=== PATIENT | female | born 1940 | race Caucasian/White ===

== ENCOUNTER → 2019-05-09 10:59 | Outpatient (BNVA) | payer MEDICARE, SELFPAY | PROVIDERS: PCP Nurse Practitioner Family; Visit Provider Nurse Practitioner Family | DX: E03.9 Hypothyroidism, unspecified (principal); E55.9 Vitamin D deficiency, unspecified; E78.2 Mixed hyperlipidemia; R05 Cough; I10 Essential (primary) hypertension; E78.5 Hyperlipidemia, unspecified | CPT/HCPCS: 80053; 80061; 82306; 84443; 85025 ==

== ENCOUNTER → 2019-08-07 14:37 | Outpatient (BNVA) | payer MEDICARE, SELFPAY | PROVIDERS: PCP Nurse Practitioner Family; Visit Provider Nurse Practitioner Family | DX: M79.672 Pain in left foot (principal) | CPT/HCPCS: 73630 ==

== ENCOUNTER → 2019-11-12 11:04 | Outpatient (BNVA) | payer MEDICARE, SELFPAY | PROVIDERS: PCP Nurse Practitioner Family; Visit Provider Nurse Practitioner | DX: R30.9 Painful micturition, unspecified (principal) | CPT/HCPCS: 81000; 87086 ==

== ENCOUNTER → 2019-11-17 12:17 | Outpatient (BNVA) | payer MEDICARE, SELFPAY | PROVIDERS: PCP Nurse Practitioner Family; Visit Provider Nurse Practitioner Family | DX: N30.00 Acute cystitis without hematuria (principal) | CPT/HCPCS: 81003; 87086 ==

== ENCOUNTER → 2019-11-27 12:42 | Outpatient (BNVA) | payer MEDICARE, SELFPAY | PROVIDERS: PCP Nurse Practitioner Family; Visit Provider Nurse Practitioner Family | DX: E03.9 Hypothyroidism, unspecified (principal); E55.9 Vitamin D deficiency, unspecified; E78.5 Hyperlipidemia, unspecified; I10 Essential (primary) hypertension; N30.00 Acute cystitis without hematuria | CPT/HCPCS: 80053; 80061; 81003; 82306; 84443; 85025 ==

== ENCOUNTER → 2019-11-30 14:38 | Outpatient (BNVA) | payer MEDICARE, SELFPAY | PROVIDERS: PCP Nurse Practitioner Family; Visit Provider Family Medicine | DX: N30.00 Acute cystitis without hematuria (principal) | CPT/HCPCS: 87086 ==

== ENCOUNTER → 2019-12-11 09:42 | Outpatient (BNVA) | payer MEDICARE, SELFPAY | PROVIDERS: PCP Nurse Practitioner Family; Visit Provider Family Medicine | DX: N30.00 Acute cystitis without hematuria (principal) | CPT/HCPCS: 81003 ==

== ENCOUNTER → 2020-05-31 09:48 | Outpatient (BNVA) | payer MEDICARE, SELFPAY | PROVIDERS: PCP Nurse Practitioner Family; Visit Provider Family Medicine | DX: E03.9 Hypothyroidism, unspecified (principal); E78.5 Hyperlipidemia, unspecified; I10 Essential (primary) hypertension | CPT/HCPCS: 80053; 80061; 84443; 85025 ==

== ENCOUNTER 2020-08-06 06:47 | Emergency (ER) | payer OTHER, MEDICARE, SELFPAY ==
[2020-08-06 06:48] VITALS: BP 150/73; PULSE 79; RESP 17; TEMP 36.6; O2SAT 94; BMI 28.6
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
--- NOTE | 2020-08-06 06:53 | ECG_ITS ---
[facility] Test Date: 2020-08-06 Pat Name: Dede Gama Department: Room: Gender: Female Classification Clerk: : 1940 Requested By: Ambrocio Garza Order Number: [id number] Chen MD: Clayton Fuller M.D. Measurements Intervals [place] Rate: 81 P: 76 NC: 185 QRS: 66 QRSD: 90 T: 50 QT: 382 QTc: 445 Interpretive Statements SINUS RHYTHM Compared to ECG 03/02/2015 22:25:43 No significant changes Electronically Signed On 08-06-2020 17:07:58 CDT by Clayton Fuller M.D. [email or web address] [id number]
[2020-08-06 06:56] VITALS: PULSE 89; RESP 18; O2SAT 95
[2020-08-06 07:04] LABS: Basophils # 0.1 10^3/uL (0.0-0.1); Basophils % 0.5 %; Eosinophils # 0.2 10^3/uL (0.0-0.8); Eosinophils % 1.9 %; Hemoglobin 13.4 g/dL (11.5-15.3); Lymphocytes # 1.8 10^3/uL (0.8-4.8); Lymphocytes % 18.1 %; Mean Corpuscular HGB Conc 33.5 g/dL (30.0-36.0); Mean Corpuscular Hemoglobin 31.5 pg (28.0-34.0); Mean Corpuscular Volume 94.1 fL (81-99); Mean Platelet Volume 9.6 fL (7.4-10.4); Monocytes # 0.7 10^3/uL (0.2-0.9); Monocytes % 6.7 %; Neutrophils # 6.87 10^3/uL (1.8-7.7); Neutrophils % 70.3 %; Nucleated Red Blood Cells % 0 %; Platelet Count 273 10^3/cmm (130-400); Red Blood Count 4.25 10^6/uL (4.1-5.3); Red Cell Distribution Width 12.5 % (12.1-15.1); White Blood Count 9.8 10^3/uL (4.0-10.0)
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
[2020-08-06 07:17] LABS: INR 0.92 (0.8-1.2)
[2020-08-06 07:18] LABS: Partial Thromboplastin Time 34.4 SECONDS (23.9-36.7)
[2020-08-06 07:19] LABS: Lactic Sepsis W/Reflex 1.5 mmol/L (0.5-2.2)
[2020-08-06 07:28] LABS: Alanine Aminotransferase 58 U/L (0-33); Albumin Level 4.1 g/dL (3.5-5.2); Alkaline Phosphatase 88 IU/L (35-105); Anion Gap 17.1 (5-19); Aspartate Amino Transferase 88 U/L (0-32); Blood Urea Nitrogen 26 mg/dL (8-23); Calcium 9.2 mg/dL (8.5-10.5); Carbon Dioxide 25 mmol/L (22-29); Chloride 103 mmol/L (98-107); Globulin 2.8 g/dL (1.3-4.6); Glucose 128 mg/dL (65-115); Osmolality Calculated 298 mOsm/kg (285-295); Potassium 4.1 mmol/L (3.5-5.1); Sodium 141 mmol/L (136-145); Total Protein 6.9 g/dL (6.6-8.7)
[2020-08-06] MEDS: tetanus-dipt-pertussis 0.5 mL SDV IM (07:39)
[2020-08-06 07:43] VITALS: RESP 16
[2020-08-06] MEDS: morphine 4 mg/mL SDV 1 mL IVP ×2 (07:43→08:05)
[2020-08-06] MEDS: iodixanol 320 mg/mL 100mL Btl IV (08:04)
[2020-08-06 08:05] VITALS: RESP 16
[2020-08-06 09:00] LABS: Bilirubin Urine Neg (Negative); Blood Urine 3+ (Negative); Glucose Urine UA Norm (Normal); Ketones Urine Negative (Negative); Nitrate Urine Negative (Negative); Protein Urine 1+ (Negative); Urine Appearance SL Hazy (CLEAR); Urine Color Yellow (Yellow); Urobilinogen Urine Norm (Negative); pH Urine 5 (5-7)
[2020-08-06 09:01] LABS: Add Urine Microscopic? YES; Leukocyte Esterase Urine Trace (Negative)
[2020-08-06 09:02] LABS: Add Urine Culture? No; Bacteria Urine TRACE /hpf; Hyaline Casts Urine 0-4 /lpf; Mucus Urine TRACE /hpf; Squamous Epithelial Cell Urine 0-4 /hpf (0-5); WBC Urine 0-4 /hpf (0-5)
[2020-08-06 09:13] VITALS: BP 179/80; PULSE 66; RESP 18; O2SAT 95
== END 2020-08-06 09:31 | disposition home or self-care (01) ==
PROVIDERS: Emergency Provider Family Medicine; PCP Nurse Practitioner Family
DX: S30.1XXA Contusion of abdominal wall, initial encounter (principal); Z79.82 Long term (current) use of aspirin; I10 Essential (primary) hypertension; E78.5 Hyperlipidemia, unspecified; S01.81XA Laceration without foreign body of other part of head, initial encounter; V89.2XXA Person injured in unspecified motor-vehicle accident, traffic, initial encounter; Z23 Encounter for immunization
CPT/HCPCS: 70450; 71260; 72125; 74177; 80053; 81001; 83605; 85025; 85610; 85730; 86850; 86900; 90471; 90715; 93005; 96374; 99284; J2270; Q9967

== ENCOUNTER → 2021-07-04 12:10 | Outpatient (BNVA) | payer MEDICARE, SELFPAY | PROVIDERS: PCP Nurse Practitioner Family; Visit Provider Nurse Practitioner Family | DX: E78.5 Hyperlipidemia, unspecified (principal); I10 Essential (primary) hypertension; E55.9 Vitamin D deficiency, unspecified; E03.9 Hypothyroidism, unspecified | CPT/HCPCS: 80053; 80061; 82306; 84443 ==

== ENCOUNTER 2021-08-04 11:13 | Emergency (ER) | payer MEDICARE, SELFPAY ==
[2021-08-04 12:00] VITALS: BP 120/63; PULSE 87; RESP 18; O2SAT 98; BMI 25.4
--- NOTE | 2021-08-04 12:38 | CT_ITS ---
WS: [id number] CT LUMBAR SPINE TECHNIQUE: Noncontrast CT of the lumbar spine with coronal and sagittal reformatted images. CLINICAL INFORMATION: fall with lower back pain COMPARISON: CT August 06, 2020. DLP: 2287.[address] scans at [facility] use at least one of these dose optimization techniques: automated e xposure control; mA and/or kV adjustment per patient size (includes targeted exams where dose is matc hed to clinical indication); or iterative reconstruction. FINDINGS: Mild lumbar curve convex LEFT. Mild compression superior endplate L5 is new compared to August 06, 2020 and has an acute appearance. Minimal loss vertebral body height. Minimal retropulsion posterior supe rior cortex. Mild central canal stenosis at this level. Mild paravertebral soft tissue edema. Mild co mpression of the LEFT superior endplate L1 also appears new from previous likely acute to subacute. L1-L2: Mild compression of the LEFT superior endplate L1. Minimal loss vertebral body height. No retr opulsion. L2-L3: Mild disc bulging with osteophytic ridging. Moderate facet arthropathy. Moderate central canal stenosis. Narrowing of the subarticular recess bilaterally. Mild RIGHT foraminal narrowing. L3-L4: Slight disc bulging with osteophytic ridging. Moderate facet arthropathy. Spinal canal and for amen are patent. L4-L5: Mild disc bulging with slight impingement on the traversing L5 nerve roots bilaterally. Advanc ed facet arthropathy ligamentum flavum flavum hypertrophy. Mild central canal stenosis. Foramen are p atent. L5-S1: Minimal annular bulging. Osteophytic ridging with mild RIGHT foraminal narrowing. LEFT foramen is patent. Moderate facet arthropathy. Sigmoid diverticulosis. CT/CT lumbar spine wo con* [id number] IMPRESSION: 1. Mild lumbar curve convex LEFT. 2. Mild compression superior endplate L5 with loss of approximately 20% verteb ral body height. This has an acute appearance with visualized fracture clefts. Minimal retropulsion posterior superior cortex with mild central canal stenosi s. 3. Additional acute to subacute appearing compression of the LEFT superior end plate L1 with minimal loss vertebral body height. 4. Chronic spondylitic changes lumbar spine described above. 5. Chronic moderate central canal stenosis L2-L3 due to disc bulging with face t arthropathy and ligamentum flavum hypertrophy..
--- NOTE | 2021-08-04 12:46 | ED_ITS ---
Documented by User: JAIR Harrison 08/04/21 16:26 HPI - Back Pain/Injury General: Chief Complaint: Back Pain/Injury Stated Complaint: fall/back pain Time Seen by Provider: 08/04/21 12:11 History of Present Illness: Patient is an 80-year-old female comes to the ED with back pain and difficulty urinating. Approximately a little over 10 days ago patient was in her house and tripped over her couch couch causing her to fall backwards. Her lower back hit the ground. Denies any head trauma or loss of consciousness. Patient was able to get up after fall on her own. Patient says she has been having lower back pain since fall. She states that pain does radiate down to her right leg. She rates the pain currently a 8 out of 10. She also reports some pelvic pain since the fall as well. The last 24 hours patient says she has had some trouble urinating. She takes a diuretic daily and says that that usually helps her urinate. Endorses a little bit of pain when urinating. Associated symptoms: Reports dysuria; Deny abdominal pain, chills, fatigue, fever(s), hematuria, nausea or vomiting Review of Systems Const: Denies: fever(s), chills or fatigue Eyes: Denies: change in vision or eye discomfort ENMT: Denies: throat pain, odynophagia, nasal discharge or nasal congestion Card: Denies: chest pain, palpitations, edema, swelling of feet/ankles, dyspnea on exertion or orthopnea Resp: Denies: dyspnea, productive cough or non-productive cough GI: Denies: abdominal pain, nausea, vomiting, diarrhea, constipation or hematochezia : Reports: difficulty voiding, dysuria and pelvic pain (Pelvic pain since fall); Denies: flank pain or hematuria Musc: Reports: back pain; Denies: neck pain or extremity swelling Skin/Breast: Denies: rash or new lesions Neuro: Denies: headache(s), numbness in extremities or weakness in extremities PFS ED PFSH: Medical History Acquired hypothyroidism Chronic constipation Essential (primary) hypertension Hyperlipidemia, unspecified Vitamin D deficiency Surgical History Hx of cholecystectomy Hx of colonoscopy (~2010) Family History Father Stroke Mother Stroke Denies family history of Diabetes Social History Smoking and tobacco status: never smoked Second hand smoke exposure: No Alcohol intake: never Caregiver/support person: Yes Lives independently: No (daughter) Household members: children Marital status: / Current occupational status: retired History of recent travel: No Current gender identity: Female Physical Exam Const: COMMON NORMALS: no acute distress, patient oriented x3 and alert GENERAL APPEARANCE: cooperative HENMT: COMMON NORMALS: normocephalic HEAD & SCALP: normocephalic MOUTH: Normal oral and palatal mucosa present THROAT: posterior oropharynx normal and uvula midline Neck/C-Spine: COMMON NORMALS: supple GENERAL: Yes normal visual inspection Resp: COMMON NORMALS: normal respiratory effort, No retractions, No use of accessory muscles and clear to auscultation bilaterally AUSCULTATION: clear to auscultation bilaterally Cardio: COMMON NORMALS: regular rate, regular rhythm, S1 normal heart sound present, S2 normal heart sound present, No gallops present (Cardio), No clicks present (Cardio), No murmurs present (Cardio) and Peripheral pulses 2+ throughout RATE: regular rate RHYTHM: regular rhythm HEART SOUNDS: S1 normal heart sound present and S2 normal heart sound present PERIPHERAL PULSES: Peripheral pulses 2+ throughout GI: COMMON NORMALS: Normal to inspection, nondistended, normoactive bowel sounds present, Soft to palpation, non-tender and no masses PALPATION: Yes Soft to palpation : COMMON NORMALS: Yes no CVA tenderness BLADDER/KIDNEY EXAM: Yes no CVA tenderness Back/Pelvis: COMMON NORMALS: no CVA tenderness LUMBAR SPINE/LOWER BACK: Yes lumbar spinal tenderness Lumbar spinal tenderness location: L3, L4 and L5 and Yes paraspinal muscle tenderness Lumbar paraspinal muscle tenderness: bilateral Extremity: COMMON NORMALS: normal to inspection Neuro: COMMON NORMALS: patient oriented x3 and moves all extremities SENSORIUM/ORIENTATION: Yes alert Skin: GENERAL SKIN EXAM: dry skin Course Reevaluation(s): Reevaluation #1: Patient was able to urinate here in the ED and UA was performed and showed UTI. Bladder scan was not performed on patient to see if she is retaining any urine. Bladder scan showed just above 80 mL of urine in bladder, also appears that she is able to void normally and is not having any urinary retention. Time: 14:20 Vital Signs: Vital signs: Vital Signs Pulse Rate 87 08/04/21 12:00 Respiratory Rate 18 08/04/21 12:00 Blood Pressure 120/63 08/04/21 12:00 Pulse Oximetry 98 08/04/21 12:00 MDM - Back Pain/Injury Medical Decision Making Patient is an 80-year-old female comes to the ED with back pain and difficulty urinating. Approximately a little over 10 days ago patient was in her house and tripped over her couch couch causing her to fall backwards. Her lower back hit the ground. Denies any head trauma or loss of consciousness. Patient was able to get up after fall on her own. Patient says she has been having lower back pain since fall. Patient also complaining of some UTI symptoms. Vital stable. Patient appears nontoxic in no acute distress. She does have some palpable tenderness of the lumbar spine and lumbar paraspinal muscle tenderness. UA shows signs of UTI. The rest of CBC and CMP were unremarkable. X-ray of the pelvis shows no acute fractures or findings. Lumbar CT scan showed a compression fracture of the superior endplate of the L5 and a compression fracture of left superior endplate of L1. Patient was put in a TLSO brace and I placed an order with case management for patient to be referred to Dr. Baumann for follow-up of lumbar compression fractures. She was diagnosed with a UTI and lumbar compression fractures and discharged home with a prescription for hydrocodone for pain and cefdinir for the UTI. Return to ED precautions given. Patient understood agree with plan. Labs I reviewed the patient's lab results. : 08/04/21 14:56 08/04/21 14:56 Radiology Impressions Lumbar Spine CT 08/04/21 12:38 IMPRESSION: 1. Mild lumbar curve convex LEFT. 2. Mild compression superior endplate L5 with loss of approximately 20% vertebral body height. This has an acute appearance with visualized fracture clefts. Minimal retropulsion posterior superior cortex with mild central canal stenosis. 3. Additional acute to subacute appearing compression of the LEFT superior endplate L1 with minimal loss vertebral body height. 4. Chronic spondylitic changes lumbar spine described above. 5. Chronic moderate central canal stenosis L2-L3 due to disc bulging with facet arthropathy and ligamentum flavum hypertrophy.. Hip/Pelvis X-Ray 08/04/21 12:49 IMPRESSION: No acute findings. Laboratory Results WBC 6.6 10^3/uL (4.0-10.0) 08/04/21 14:56 Corrected WBC Cancelled 08/04/21 14:02 RBC 4.21 10^6/uL (4.1-5.3) 08/04/21 14:56 Hgb 13.1 g/dL (11.5-15.3) 08/04/21 14:56 Hct 38.9 % (37.0-47.0) 08/04/21 14:56 MCV 92.4 fl (81-99) 08/04/21 14:56 MCH 31.1 pg (28.0-34.0) 08/04/21 14:56 MCHC 33.7 g/dL (30.0-36.0) 08/04/21 14:56 RDW 12.0 % (12.1-15.1) L 08/04/21 14:56 Plt Count 280 10^3/cmm (130-400) 08/04/21 14:56 MPV 9.2 fL (7.4-10.4) 08/04/21 14:56 Gran % Cancelled 08/04/21 14:02 Neut % (Auto) 72.6 % 08/04/21 14:56 Lymph % (Auto) 16.7 % 08/04/21 14:56 Hill % (Auto) 8.1 % 08/04/21 14:56 Eos % (Auto) 1.7 % 08/04/21 14:56 Baso % (Auto) 0.6 % 08/04/21 14:56 Neut # (Auto) 4.78 10^3/uL (1.8-7.7) 08/04/21 14:56 Lymph # (Auto) 1.1 10^3/uL (0.8-4.8) 08/04/21 14:56 Hill # (Auto) 0.5 10^3/uL (0.2-0.9) 08/04/21 14:56 Eos # (Auto) 0.1 10^3/uL (0.0-0.8) 08/04/21 14:56 Baso # (Auto) 0.0 10^3/uL (0.0-0.1) 08/04/21 14:56 Absolute Gran (auto) Cancelled 08/04/21 14:02 Nucleated RBC % (auto) 0 % 08/04/21 14:56 Nucleated RBCs # 0.0 /100WBC 08/04/21 14:56 Sodium 140 mmol/L (136-145) 08/04/21 14:56 Potassium 4.4 mmol/L (3.5-5.1) 08/04/21 14:56 Chloride 104 mmol/L (98-107) 08/04/21 14:56 Carbon Dioxide 27 mmol/L (22-29) 08/04/21 14:56 Anion Gap 13.4 (5-19) 08/04/21 14:56 BUN 22 mg/dL (8-23) 08/04/21 14:56 Creatinine 0.7 mg/dL (0.5-0.9) 08/04/21 14:56 GFR Calculation Not Reportable 08/04/21 14:56 Glucose 91 mg/dL (65-115) 08/04/21 14:56 Calculated Osmolality 293 mOsm/kg (285-295) 08/04/21 14:56 Calcium 9.5 mg/dL (8.5-10.5) 08/04/21 14:56 Total Bilirubin 0.6 mg/dL (0.15-1.2) 08/04/21 14:56 AST 20 U/L (0-32) 08/04/21 14:56 ALT 14 U/L (0-33) 08/04/21 14:56 Alkaline Phosphatase 86 IU/L (35-105) 08/04/21 14:56 Total Protein 7.3 g/dL (6.6-8.7) 08/04/21 14:56 Albumin 3.8 g/dL (3.5-5.2) 08/04/21 14:56 Globulin 3.5 g/dL (1.3-4.6) 08/04/21 14:56 Urine Color Yellow (Yellow) 08/04/21 13:04 Urine Appearance Clear (CLEAR) 08/04/21 13:04 Urine pH 5 (5-7) 08/04/21 13:04 Ur Specific [place] 1.020 (1.005-1.030) 08/04/21 13:04 Urine Protein Neg (Negative) 08/04/21 13:04 Urine Glucose (UA) Norm (Normal) 08/04/21 13:04 Urine Ketones Negative (Negative) 08/04/21 13:04 Urine Blood Neg (Negative) 08/04/21 13:04 Urine Nitrate Positive (Negative) H 08/04/21 13:04 Urine Bilirubin Neg (Negative) 08/04/21 13:04 Urine Urobilinogen Norm mg/dL (Negative) 08/04/21 13:04 Ur Leukocyte Esterase 1+ (Negative) H 08/04/21 13:04 Urine RBC 0-4 /hpf (0-2) H 08/04/21 13:04 Urine WBC 5-10 /hpf (0-5) H 08/04/21 13:04 Ur Squamous Epith Cells 0-4 /hpf (0-5) H 08/04/21 13:04 Amorphous Sediment Not Reportable 08/04/21 13:04 Urine Bacteria 4+ /hpf (NONE) H 08/04/21 13:04 Discharge Plan Discharge Patient Disposition: Home Clinical Impression: Compression fracture of thoracolumbar vertebra Qualifiers: Encounter type: initial encounter Fracture type: closed Qualified Code(s): S22.080A - Wedge compression fracture of T11-T12 vertebra, initial encounter for closed fracture UTI (urinary tract infection) Qualifiers: Urinary tract infection type: acute cystitis Hematuria presence: with hematuria Qualified Code(s): N30.01 - Acute cystitis with hematuria Condition: Stable Prescriptions: New methocarbamol 750 mg tablet 750 mg PO Q8H PRN (Reason: muscle spasms and pain) Qty: 15 0RF cefdinir 300 mg capsule 300 mg PO BID 10 Days Qty: 20 0RF prednisone 20 mg tablet 20 mg PO BID 5 Days Qty: 10 0RF No Action omega-3 fatty acids 1,000 mg capsule 2,000 mg PO QDAY 0RF calcium carbonate 600 mg calcium (1,500 mg) tablet 1,200 mg PO BID 0RF aspirin [Adult Aspirin Regimen] 81 mg tablet,delayed release (DR/EC) 81 mg PO DAILY 0RF multivitamin Tablet 1 tab PO DAILY 0RF cholecalciferol (vitamin D3) 25 mcg (1,000 unit) capsule 1,000 unit PO QDAY 90 Days Qty: 90 1RF diclofenac sodium 75 mg tablet,delayed release (DR/EC) 75 mg PO Q12H 90 Days Qty: 180 0RF levothyroxine 88 mcg tablet 88 mcg PO DAILY 90 Days Qty: 90 1RF lisinopril-hydrochlorothiazide 10-12.5 mg tablet 1 tab PO DAILY 90 Days Qty: 90 1RF rosuvastatin 20 mg tablet 10 mg PO QDAY Qty: 30 5RF tizanidine 2 mg tablet 2 mg PO TID PRN (Reason: muscle spasticity) Qty: 90 3RF diclofenac sodium [Voltaren Arthritis Pain] 1 % gel 4 g topical QID Qty: 100 6RF sertraline [Zoloft] 25 mg tablet 25 mg PO DAILY 30 Days Qty: 30 0RF levocetirizine [Xyzal] 5 mg tablet 5 mg PO DAILY 90 Days Qty: 90 1RF Discharge Orders: Discharge ED (Routine); Ordered 08/04/21 Ordered By: Vishnu Michaels Referrals: Priscila Scott FNP [Primary Care Provider] - Discharge Diet: Regular Discharge Activity: Limit activity as instructed Patient Instructions: Fractures - Compression, Urinary Tract Infection in Women (DC), Opioid Safety Activity Restrictions/Additional Instructions: Follow-up with medical provider as directed. Case management regarding in the next several days set up an appointment with the orthospine specialist Dr. Baumann. Also follow-up with your primary care doctor within the next week for reevaluation as well. Wear TLSO brace to help with symptoms and limit any activity or lifting to less than 5 pounds. Take medications as prescribed. Return to the ER or your medical provider if condition worsens. Please read and understand discharge instructions. Thank you for choosing [facility] for your healthcare needs today. Please realize this is an emergency room and that we are providing you with a medical screening exam and this may not be complete and all inclusive of all the testing and or work up that you may need to determine your ailment or severity of your illness. It is very important that you follow up as instructed or that you return to the Emergency Department should you have concerns or if your condition changes or worsens in any way. Coding Level of Care Code ED Screener Perfumer for Chg Fwd Exam Comprehensive Documented by User: Ambrocio Felix DO 08/06/21 21:36 HPI - Back Pain/Injury General: Chief Complaint: Back Pain/Injury Stated Complaint: fall/back pain Time Seen by Provider: 08/04/21 12:11 PFSH ED PFSH: Medical History Acquired hypothyroidism Chronic constipation Essential (primary) hypertension Hyperlipidemia, unspecified Vitamin D deficiency Surgical History Hx of cholecystectomy Hx of colonoscopy (~2010) Family History Father Stroke Mother Stroke Denies family history of Diabetes Social History Smoking and tobacco status: never smoked Second hand smoke exposure: No Alcohol intake: never Caregiver/support person: Yes Lives independently: No (daughter) Household members: children Marital status: / Current occupational status: retired History of recent travel: No Current gender identity: Female Course Vital Signs: Vital signs: Vital Signs Pulse Rate 87 08/04/21 12:00 Respiratory Rate 18 08/04/21 12:00 Blood Pressure 120/63 08/04/21 12:00 Pulse Oximetry 98 08/04/21 12:00 MDM - Back Pain/Injury Medical Decision Making Patient is an 80-year-old female comes to the ED with back pain and difficulty urinating. Approximately a little over 10 days ago patient was in her house and tripped over her couch couch causing her to fall backwards. Her lower back hit the ground. Denies any head trauma or loss of consciousness. Patient was able to get up after fall on her own. Patient says she has been having lower back pain since fall. Patient also complaining of some UTI symptoms. Vital stable. Patient appears nontoxic in no acute distress. She does have some palpable tenderness of the lumbar spine and lumbar paraspinal muscle tenderness. UA shows signs of UTI. The rest of CBC and CMP were unremarkable. X-ray of the pelvis shows no acute fractures or findings. Lumbar CT scan showed a compression fracture of the superior endplate of the L5 and a compression fracture of left superior endplate of L1. Patient was put in a TLSO brace and I placed an order with case management for patient to be referred to Dr. Baumann for follow-up of lumbar compression fractures. She was diagnosed with a UTI and lumbar compression fractures and discharged home with a prescription for hydrocodone for pain and cefdinir for the UTI. Return to ED precautions given. Patient understood agree with plan. Chart reviewed and patient discussed with midlevel. Agree with assessment and plan. Labs : 08/04/21 14:56 08/04/21 14:56 Radiology Impressions Lumbar Spine CT 08/04/21 12:38 IMPRESSION: 1. Mild lumbar curve convex LEFT. 2. Mild compression superior endplate L5 with loss of approximately 20% vertebral body height. This has an acute appearance with visualized fracture clefts. Minimal retropulsion posterior superior cortex with mild central canal stenosis. 3. Additional acute to subacute appearing compression of the LEFT superior endplate L1 with minimal loss vertebral body height. 4. Chronic spondylitic changes lumbar spine described above. 5. Chronic moderate central canal stenosis L2-L3 due to disc bulging with facet arthropathy and ligamentum flavum hypertrophy.. Hip/Pelvis X-Ray 08/04/21 12:49 IMPRESSION: No acute findings. Laboratory Results WBC 6.6 10^3/uL (4.0-10.0) 08/04/21 14:56 Corrected WBC Cancelled 08/04/21 14:02 RBC 4.21 10^6/uL (4.1-5.3) 08/04/21 14:56 Hgb 13.1 g/dL (11.5-15.3) 08/04/21 14:56 Hct 38.9 % (37.0-47.0) 08/04/21 14:56 MCV 92.4 fl (81-99) 08/04/21 14:56 MCH 31.1 pg (28.0-34.0) 08/04/21 14:56 MCHC 33.7 g/dL (30.0-36.0) 08/04/21 14:56 RDW 12.0 % (12.1-15.1) L 08/04/21 14:56 Plt Count 280 10^3/cmm (130-400) 08/04/21 14:56 MPV 9.2 fL (7.4-10.4) 08/04/21 14:56 Gran % Cancelled 08/04/21 14:02 Neut % (Auto) 72.6 % 08/04/21 14:56 Lymph % (Auto) 16.7 % 08/04/21 14:56 Hill % (Auto) 8.1 % 08/04/21 14:56 Eos % (Auto) 1.7 % 08/04/21 14:56 Baso % (Auto) 0.6 % 08/04/21 14:56 Neut # (Auto) 4.78 10^3/uL (1.8-7.7) 08/04/21 14:56 Lymph # (Auto) 1.1 10^3/uL (0.8-4.8) 08/04/21 14:56 Hill # (Auto) 0.5 10^3/uL (0.2-0.9) 08/04/21 14:56 Eos # (Auto) 0.1 10^3/uL (0.0-0.8) 08/04/21 14:56 Baso # (Auto) 0.0 10^3/uL (0.0-0.1) 08/04/21 14:56 Absolute Gran (auto) Cancelled 08/04/21 14:02 Nucleated RBC % (auto) 0 % 08/04/21 14:56 Nucleated RBCs # 0.0 /100WBC 08/04/21 14:56 Sodium 140 mmol/L (136-145) 08/04/21 14:56 Potassium 4.4 mmol/L (3.5-5.1) 08/04/21 14:56 Chloride 104 mmol/L (98-107) 08/04/21 14:56 Carbon Dioxide 27 mmol/L (22-29) 08/04/21 14:56 Anion Gap 13.4 (5-19) 08/04/21 14:56 BUN 22 mg/dL (8-23) 08/04/21 14:56 Creatinine 0.7 mg/dL (0.5-0.9) 08/04/21 14:56 GFR Calculation Not Reportable 08/04/21 14:56 Glucose 91 mg/dL (65-115) 08/04/21 14:56 Calculated Osmolality 293 mOsm/kg (285-295) 08/04/21 14:56 Calcium 9.5 mg/dL (8.5-10.5) 08/04/21 14:56 Total Bilirubin 0.6 mg/dL (0.15-1.2) 08/04/21 14:56 AST 20 U/L (0-32) 08/04/21 14:56 ALT 14 U/L (0-33) 08/04/21 14:56 Alkaline Phosphatase 86 IU/L (35-105) 08/04/21 14:56 Total Protein 7.3 g/dL (6.6-8.7) 08/04/21 14:56 Albumin 3.8 g/dL (3.5-5.2) 08/04/21 14:56 Globulin 3.5 g/dL (1.3-4.6) 08/04/21 14:56 Urine Color Yellow (Yellow) 08/04/21 13:04 Urine Appearance Clear (CLEAR) 08/04/21 13:04 Urine pH 5 (5-7) 08/04/21 13:04 Ur Specific [place] 1.020 (1.005-1.030) 08/04/21 13:04 Urine Protein Neg (Negative) 08/04/21 13:04 Urine Glucose (UA) Norm (Normal) 08/04/21 13:04 Urine Ketones Negative (Negative) 08/04/21 13:04 Urine Blood Neg (Negative) 08/04/21 13:04 Urine Nitrate Positive (Negative) H 08/04/21 13:04 Urine Bilirubin Neg (Negative) 08/04/21 13:04 Urine Urobilinogen Norm mg/dL (Negative) 08/04/21 13:04 Ur Leukocyte Esterase 1+ (Negative) H 08/04/21 13:04 Urine RBC 0-4 /hpf (0-2) H 08/04/21 13:04 Urine WBC 5-10 /hpf (0-5) H 08/04/21 13:04 Ur Squamous Epith Cells 0-4 /hpf (0-5) H 08/04/21 13:04 Amorphous Sediment Not Reportable 08/04/21 13:04 Urine Bacteria 4+ /hpf (NONE) H 08/04/21 13:04 Discharge Plan Discharge Patient Disposition: Home Clinical Impression: Compression fracture of thoracolumbar vertebra Qualifiers: Encounter type: initial encounter Fracture type: closed Qualified Code(s): S22.080A - Wedge compression fracture of T11-T12 vertebra, initial encounter for closed fracture UTI (urinary tract infection) Qualifiers: Urinary tract infection type: acute cystitis Hematuria presence: with hematuria Qualified Code(s): N30.01 - Acute cystitis with hematuria Condition: Stable Prescriptions: New methocarbamol 750 mg tablet 750 mg PO Q8H PRN (Reason: muscle spasms and pain) Qty: 15 0RF cefdinir 300 mg capsule 300 mg PO BID 10 Days Qty: 20 0RF prednisone 20 mg tablet 20 mg PO BID 5 Days Qty: 10 0RF No Action omega-3 fatty acids 1,000 mg capsule 2,000 mg PO QDAY 0RF calcium carbonate 600 mg calcium (1,500 mg) tablet 1,200 mg PO BID 0RF aspirin [Adult Aspirin Regimen] 81 mg tablet,delayed release (DR/EC) 81 mg PO DAILY 0RF multivitamin Tablet 1 tab PO DAILY 0RF cholecalciferol (vitamin D3) 25 mcg (1,000 unit) capsule 1,000 unit PO QDAY 90 Days Qty: 90 1RF diclofenac sodium 75 mg tablet,delayed release (DR/EC) 75 mg PO Q12H 90 Days Qty: 180 0RF levothyroxine 88 mcg tablet 88 mcg PO DAILY 90 Days Qty: 90 1RF lisinopril-hydrochlorothiazide 10-12.5 mg tablet 1 tab PO DAILY 90 Days Qty: 90 1RF rosuvastatin 20 mg tablet 10 mg PO QDAY Qty: 30 5RF tizanidine 2 mg tablet 2 mg PO TID PRN (Reason: muscle spasticity) Qty: 90 3RF diclofenac sodium [Voltaren Arthritis Pain] 1 % gel 4 g topical QID Qty: 100 6RF sertraline [Zoloft] 25 mg tablet 25 mg PO DAILY 30 Days Qty: 30 0RF levocetirizine [Xyzal] 5 mg tablet 5 mg PO DAILY 90 Days Qty: 90 1RF Discharge Orders: Discharge ED (Routine); Ordered 08/04/21 Ordered By: Vishnu Michaels Referrals: Priscila Scott FNP [Primary Care Provider] - Discharge Diet: Regular Discharge Activity: Limit activity as instructed Patient Instructions: Fractures - Compression, Urinary Tract Infection in Women (DC), Opioid Safety Activity Restrictions/Additional Instructions: Follow-up with medical provider as directed. Case management regarding in the next several days set up an appointment with the orthospine specialist Dr. Baumann. Also follow-up with your primary care doctor within the next week for reevaluation as well. Wear TLSO brace to help with symptoms and limit any activity or lifting to less than 5 pounds. Take medications as prescribed. Return to the ER or your medical provider if condition worsens. Please read and understand discharge instructions. Thank you for choosing [facility] for your healthcare needs today. Please realize this is an emergency room and that we are providing you with a medical screening exam and this may not be complete and all inclusive of all the testing and or work up that you may need to determine your ailment or severity of your illness. It is very important that you follow up as instructed or that you return to the Emergency Department should you have concerns or if your condition changes or worsens in any way. Coding Level of Care Code ED Screener Perfumer for Dayanna Michaud Exam Comprehensive
--- NOTE | 2021-08-04 12:49 | XRR_ITS ---
PROCEDURE INFORMATION: Exam: XR Bilateral Hips Exam date and time: 08/04/2021 1:18 PM Age: 80 years old Clinical indication: Pain and injury or trauma; Fall; Blunt trauma (contusions or hematomas); Bilateral; Hip pain; Additional info: Fall with low back and pelvic pain TECHNIQUE: Imaging protocol: XR bilateral hips. Views: 2 views of hips with pelvis when performed. COMPARISON: CT chest abd pel w con* 08/06/2020 7:05 AM FINDINGS: Bones/joints: Unremarkable. No acute fracture. Soft tissues: Unremarkable. XR/XR hip BI 3-4V wo/w pel [id number] IMPRESSION: No acute findings.
[2021-08-04 13:35] LABS: Urine Appearance Clear (CLEAR); Urine Color Yellow (Yellow); pH Urine 5 (5-7)
[2021-08-04 13:36] LABS: Add Urine Culture? Yes; Add Urine Microscopic? YES; Bacteria Urine 4+ /hpf; Bilirubin Urine Neg (Negative); Blood Urine Neg (Negative); Glucose Urine UA Norm (Normal); Ketones Urine Negative (Negative); Leukocyte Esterase Urine 1+ (Negative); Nitrate Urine Positive (Negative); Protein Urine Neg (Negative); RBC Urine 0-4 /hpf (0-2); Squamous Epithelial Cell Urine 0-4 /hpf (0-5); Urobilinogen Urine Norm (Negative)
[2021-08-04 15:02] LABS: Basophils % 0.6 %; Eosinophils # 0.1 10^3/uL (0.0-0.8); Eosinophils % 1.7 %; Hematocrit 38.9 % (37.0-47.0); Hemoglobin 13.1 g/dL (11.5-15.3); Lymphocytes # 1.1 10^3/uL (0.8-4.8); Lymphocytes % 16.7 %; Mean Corpuscular HGB Conc 33.7 g/dL (30.0-36.0); Mean Corpuscular Hemoglobin 31.1 pg (28.0-34.0); Mean Corpuscular Volume 92.4 fl (81-99); Mean Platelet Volume 9.2 fL (7.4-10.4); Monocytes # 0.5 10^3/uL (0.2-0.9); Monocytes % 8.1 %; Neutrophils # 4.78 10^3/uL (1.8-7.7); Neutrophils % 72.6 %; Nucleated Red Blood Cells % 0 %; Platelet Count 280 10^3/cmm (130-400); Red Blood Count 4.21 10^6/uL (4.1-5.3); White Blood Count 6.6 10^3/uL (4.0-10.0)
[2021-08-04 15:22] LABS: Alanine Aminotransferase 14 U/L (0-33); Albumin Level 3.8 g/dL (3.5-5.2); Alkaline Phosphatase 86 IU/L (35-105); Anion Gap 13.4 (5-19); Aspartate Amino Transferase 20 U/L (0-32); Blood Urea Nitrogen 22 mg/dL (8-23); Calcium 9.5 mg/dL (8.5-10.5); Carbon Dioxide 27 mmol/L (22-29); Chloride 104 mmol/L (98-107); Globulin 3.5 g/dL (1.3-4.6); Glucose 91 mg/dL (65-115); Osmolality Calculated 293 mOsm/kg (285-295); Potassium 4.4 mmol/L (3.5-5.1); Sodium 140 mmol/L (136-145); Total Bilirubin 0.6 mg/dL (0.15-1.2); Total Protein 7.3 g/dL (6.6-8.7)
--- NOTE | 2021-08-05 13:15 | DCPLANNER ---
Addendum entered by Emily Foreman 08/06/21 10:36: analytic manager was notified by ortho stating that the clinic tried to contact patient to schedule an appointment clinic has been unable to reach patient to schedule an appointment. Original Note: analytic manager had message to schedule a follow up appointment for patient with ortho. analytic manager sent patients information to the front office staff at ortho. Patients information will be printed and reviewed. Clinic will call patient with appointment information.
== END 2021-08-04 16:07 | disposition home or self-care (01) ==
PROVIDERS: Emergency Provider Physician Assistant; PCP Nurse Practitioner Family
DX: S22.080A Wedge compression fracture of T11-T12 vertebra, initial encounter for closed fracture (principal); N30.01 Acute cystitis with hematuria; W18.09XA Striking against other object with subsequent fall, initial encounter
CPT/HCPCS: 36415; 72131; 73522; 80053; 81001; 85025; 87077; 87086; 87186; 97760; 99284; L0456

== ENCOUNTER → 2022-01-01 12:52 | Outpatient (BNVA) | payer MEDICARE, SELFPAY | PROVIDERS: PCP Nurse Practitioner Family; Visit Provider Podiatrist Foot & Ankle Surgery | DX: B35.1 Tinea unguium (principal) | CPT/HCPCS: 99203 ==

== ENCOUNTER → 2022-06-09 10:58 | Outpatient (BNVA) | payer MEDICARE, SELFPAY | PROVIDERS: PCP Nurse Practitioner Family; Visit Provider Nurse Practitioner Family | DX: E03.9 Hypothyroidism, unspecified (principal); I10 Essential (primary) hypertension; E78.5 Hyperlipidemia, unspecified; E55.9 Vitamin D deficiency, unspecified; F32.9 Major depressive disorder, single episode, unspecified | CPT/HCPCS: 80053; 80061; 82306; 84443 ==

== ENCOUNTER 2022-10-05 11:24 | Emergency (ER) | payer MEDICARE, SELFPAY ==
[2022-10-05 11:34] VITALS: BP 137/63; PULSE 80; RESP 16; TEMP 37; BMI 29.1
--- NOTE | 2022-10-05 12:51 | XR_ITS ---
WS: [id number] XR foot RT min 3V* [id number] REASON FOR EXAM: injury FINDINGS: No acute fracture identified. 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 No radiopaque soft tissue foreign body. XR/XR foot RT min 3V* [id number] IMPRESSION: No acute abnormality.
--- NOTE | 2022-10-05 12:52 | W.ED.LOWEXIN ---
HPI - Extremity Injury (Lower) General: Chief Complaint: Fall Stated Complaint: fall, right foot pain Time Seen by Provider: 10/05/22 12:29 Source: patient and family Mode of arrival: ambulatory Limitations: no limitations History of Present Illness: Patient is an 81-year-old female who presents to ED today with complaint of a right foot injury. Patient states she bent over and got dizzy causing her to fall and thinks she twisted the right foot. She has been ambulatory on the extremity since the fall. Patient states she never had any chest pain, shortness of breath, difficulty breathing, palpitations. She has no headache. She denies any other injury sustained during the fall. Family with patient states last time she got dizzy like that she was diagnosed with a UTI. MD complaint: foot injury Onset (ago): day(s) (yesterday) Injury: Right: foot Place: home Severity: mild Relieving factors: immobilization Exacerbating factors: weight bearing, movement and palpation Context: fall Associated symptoms: Reports no associated symptoms Other symptoms: other (dizziness) Review of Systems Const: Denies: fever(s), chills, body aches, fatigue or malaise Eyes: Denies: change in vision or blurry vision Card: Denies: chest pain, palpitations, irregular heart rhythm, edema, swelling of feet/ankles, syncope, pre-syncope or dyspnea on exertion Resp: Denies: dyspnea, productive cough or pain on inspiration GI: Denies: abdominal pain, nausea, vomiting, heartburn or diarrhea : Denies: dysuria Musc: Reports: extremity pain (R foot); Denies: neck pain, back pain, extremity swelling, joint pain, joint swelling, joint redness, joint warmth or limited range of motion Skin/Breast: Denies: rash Neuro: Reports: dizziness; Denies: headache(s), numbness in extremities, weakness in extremities, sensory changes, lack of coordination or difficulty walking PFSH ED PFSH: Medical History Acquired hypothyroidism Chronic constipation Essential (primary) hypertension Hyperlipidemia, unspecified Vitamin D deficiency Surgical History Hx of cholecystectomy Hx of colonoscopy (~2010) Family History Father Stroke Mother Stroke Denies family history of Diabetes Social History Smoking and tobacco status: never smoked Second hand smoke exposure: No Alcohol intake: never Substance/Drug Use: never Caregiver/support person: Yes Lives independently: No (daughter) Household members: children Marital status: / Current occupational status: retired Current gender identity: Female Physical Exam Const: COMMON NORMALS: no acute distress, average body habitus, patient oriented x3, no limitations, healthy appearing, alert and well nourished ORIENTATION/CONSCIOUSNESS: Yes awake, Yes oriented to person, Yes oriented to place and Yes oriented to time HENMT: COMMON NORMALS: normocephalic and atraumatic HEAD & SCALP: normal to inspection, normocephalic and atraumatic FACE & SINUS: normal facial exam Eye: COMMON NORMALS: Equal, round and reactive pupils present and EOMs intact bilaterally GENERAL EYE: appearance normal, both eyes and all related structures and normal light reflex PUPIL: Yes Equal, round and reactive pupils present DIRECT OPHTHALMOSCOPY: Yes normal light reflex Neck/C-Spine: COMMON NORMALS: full ROM CERVICAL SPINE: Yes cervical ROM normal, No pain with cervical ROM, No Cervical spine tenderness, No step off deformity and No Paracervical muscle tenderness Resp: COMMON NORMALS: normal respiratory effort and clear to auscultation bilaterally AUSCULTATION: clear to auscultation bilaterally Cardio: COMMON NORMALS: regular rate and regular rhythm RATE: regular rate RHYTHM: regular rhythm Back/Pelvis: COMMON NORMALS: thoracic and lumbar spine normal to inspection, no thoracic nor lumbar tenderness and thoraco-lumbar ROM normal Extremity: COMMON NORMALS: normal to inspection (apart from chronic varicosities), full ROM, capillary refill normal, no joint enlargement, no clubbing, cyanosis or edema, no calf tenderness and no pedal edema GENERAL: Yes normal exam except as noted RIGHT LOWER EXTREMITY: Yes foot & digits (mild tenderness dorsolateral R foot) Right foot and digits: Yes inspection (no obvious swelling or bony deformities noted), Yes ROM (normal) and Yes neurovascular exam (normal) Neuro: RAY COMA SCALE: document GCS findings Ray coma scale eye opening: Spontaneous Ray coma scale verbal response: Orientated Ray coma scale motor response: Obey commands Ray coma scale total score: 15 COMMON NORMALS: patient oriented x3, moves all extremities, no focal motor deficits, no sensory deficits noted and gait normal SENSORIUM/ORIENTATION: Yes alert, Yes oriented to person, Yes oriented to place and Yes oriented to time Skin: COMMON NORMALS: no rashes or lesions noted GENERAL SKIN EXAM: no rashes or lesions noted TRAUMA: no lacerations or abrasions Course Vital Signs: Vital signs: Vital Signs Temperature 98.6 F 10/05/22 11:34 Pulse Rate 80 10/05/22 14:48 Respiratory Rate 16 10/05/22 14:48 Blood Pressure 137/63 10/05/22 14:48 Pulse Oximetry 96 10/05/22 14:48 MDM - Extremity Injury (Lower) Medical Decision Making XR negative. Her vital signs are stable. I highly recommended patient be worked up for etiology of her dizziness although she adamantly declines-she is worried about the emergency department cost/bill. He states she just wants a urinalysis performed to rule out a UTI. On her UA today she does have 2+ leuks and 25-40 WBCs so certainly she will be placed on antibiotics for this. Discussed ruling out other etiologies for dizziness but she declines. Family did contact her PCP while she was here and they scheduled her a follow-up visit for 10/13. Return ED precautions given especially if dizziness persists or if it is accompanied with passing out episodes, heart palpitations, chest pain, shortness of breath, or any other concerns she may have. Lab Data Radiology Impressions Foot X-Ray 10/05/22 12:51 IMPRESSION: No acute abnormality. Laboratory Results Urine Color Yellow (Yellow) 10/05/22 13:40 Urine Appearance Clear (CLEAR) 10/05/22 13:40 Urine pH 5 (5-7) 10/05/22 13:40 Ur Specific [place] 1.020 (1.005-1.030) 10/05/22 13:40 Urine Protein Neg (Negative) 10/05/22 13:40 Urine Glucose (UA) Norm (Normal) 10/05/22 13:40 Urine Ketones Negative (Negative) 10/05/22 13:40 Urine Blood 2+ (Negative) H 10/05/22 13:40 Urine Nitrate Negative (Negative) 10/05/22 13:40 Urine Bilirubin Neg (Negative) 10/05/22 13:40 Urine Urobilinogen Norm mg/dL (Negative) 10/05/22 13:40 Ur Leukocyte Esterase 2+ (Negative) H 10/05/22 13:40 Urine RBC 5-10 /hpf (0-2) H 10/05/22 13:40 Urine WBC 25-40 /hpf (0-5) H 10/05/22 13:40 Ur Squamous Epith Cells 0-4 /hpf (0-5) H 10/05/22 13:40 Amorphous Sediment Not Reportable 10/05/22 13:40 Urine Bacteria 1+ /hpf (NONE) H 10/05/22 13:40 Discharge Plan Discharge Patient Disposition: Home Clinical Impression: Dizziness Injury of foot, right Qualifiers: Encounter type: initial encounter Qualified Code(s): S99.921A - Unspecified injury of right foot, initial encounter Acute cystitis Qualifiers: Hematuria presence: with hematuria Qualified Code(s): N30.01 - Acute cystitis with hematuria Condition: Stable Prescriptions: New Macrobid 100 mg capsule 100 mg PO BID 7 Days Qty: 14 0RF Rx Instructions: must administer with a meal/food No Action omega-3 fatty acids 1,000 mg capsule 2,000 mg PO QDAY calcium carbonate 600 mg calcium (1,500 mg) tablet 1,200 mg PO BID aspirin [Adult Aspirin Regimen] 81 mg tablet,delayed release (DR/EC) 81 mg PO DAILY multivitamin Tablet 1 tab PO DAILY tizanidine 2 mg tablet 2 mg PO TID PRN (Reason: muscle spasticity) Qty: 90 3RF cholecalciferol (vitamin D3) 25 mcg (1,000 unit) capsule 1,000 unit PO QDAY 90 Days Qty: 90 1RF diclofenac sodium [Voltaren Arthritis Pain] 1 % gel 4 g topical QID Qty: 100 6RF diclofenac sodium 75 mg tablet,delayed release (DR/EC) 75 mg PO Q12H 90 Days Qty: 180 1RF levocetirizine [Xyzal] 5 mg tablet 5 mg PO DAILY 90 Days Qty: 90 1RF levothyroxine 88 mcg tablet 88 mcg PO DAILY 90 Days Qty: 90 1RF lisinopril-hydrochlorothiazide 10-12.5 mg tablet 1 tab PO DAILY 90 Days Qty: 90 1RF rosuvastatin 20 mg tablet 10 mg PO QDAY 90 Days Qty: 45 1RF sertraline [Zoloft] 25 mg tablet 25 mg PO DAILY 90 Days Qty: 90 1RF promethazine-DM 6.25-15 mg/5 mL syrup 5 - 10 ml PO Q6H PRN (Reason: cough) Qty: 200 1RF fluticasone propionate [Flonase Allergy Relief] 50 mcg/actuation spray,suspension 2 spray intranasal DAILY Qty: 16 6RF Rx Instructions: administer into each nostril Discharge Orders: Discharge ED (Routine); Ordered 10/05/22 Ordered By: Myriam Cha Referrals: Priscila Scott FNP [Primary Care Provider] - Patient Instructions: Dizziness, Urinary Tract Infection in Women (DC) Coding Level of Care Code ED Director Of Informatics for Dayanna Michaud
[2022-10-05 14:03] LABS: Add Urine Culture? Yes; Add Urine Microscopic? YES; Bacteria Urine 1+ /hpf; Bilirubin Urine Neg (Negative); Blood Urine 2+ (Negative); Glucose Urine UA Norm (Normal); Ketones Urine Negative (Negative); Leukocyte Esterase Urine 2+ (Negative); Nitrate Urine Negative (Negative); Protein Urine Neg (Negative); Squamous Epithelial Cell Urine 0-4 /hpf (0-5); Urine Appearance Clear (CLEAR); Urine Color Yellow (Yellow); Urobilinogen Urine Norm (Negative); WBC Urine 25-40 /hpf (0-5); pH Urine 5 (5-7)
[2022-10-05 14:48] VITALS: BP 137/63; PULSE 80; RESP 16; O2SAT 96
== END 2022-10-05 14:50 | disposition home or self-care (01) ==
PROVIDERS: Emergency Provider Physician Assistant; PCP Nurse Practitioner Family
DX: R42 Dizziness and giddiness (principal); S99.921A Unspecified injury of right foot, initial encounter; N30.01 Acute cystitis with hematuria; Z79.82 Long term (current) use of aspirin; I10 Essential (primary) hypertension; E78.5 Hyperlipidemia, unspecified; W19.XXXA Unspecified fall, initial encounter
CPT/HCPCS: 73630; 81001; 87086; 99284

== ENCOUNTER → 2022-12-18 13:15 | Outpatient (BNVA) | payer MEDICARE, SELFPAY | PROVIDERS: PCP Nurse Practitioner Family; Visit Provider Nurse Practitioner Family | DX: I10 Essential (primary) hypertension (principal); E78.5 Hyperlipidemia, unspecified; E55.9 Vitamin D deficiency, unspecified; E03.9 Hypothyroidism, unspecified; M19.90 Unspecified osteoarthritis, unspecified site; J30.2 Other seasonal allergic rhinitis; F32.9 Major depressive disorder, single episode, unspecified; M54.50 Low back pain, unspecified; N32.81 Overactive bladder; R32 Unspecified urinary incontinence; Z23 Encounter for immunization | CPT/HCPCS: 80053; 80061; 82306; 84443 ==

== ENCOUNTER 2023-02-11 15:23 | Emergency (ER) | payer MEDICARE, SELFPAY ==
[2023-02-11 15:25] VITALS: BP 155/74; PULSE 84; RESP 18; TEMP 36.9; O2SAT 97; BMI 24.0
--- NOTE | 2023-02-11 15:32 | CT_ITS ---
WS: [id number] CT scan of the head, 02/11/2023 Clinical Data: fall, head trauma, left eye brow region Comparison: CT head, 08/06/2020 DLP: 1072.[address] scans at [facility] use at least one of these dose optimization techniques: automated e xposure control; mA and/or kV adjustment per patient size (includes targeted exams where dose is matc hed to clinical indication); or iterative reconstruction. Findings: The ventricular system is normal without shift. There is minimal dilatation of the ventricles and sul ci. No recent infarct or hemorrhage is seen. There are no abnormal intracerebral masses. The cerebell um and brainstem are not remarkable. Bony windows of the skull and skull base show no fractures or erosions. The mastoid air cells, internet sales associate al auditory canals, sella turcica, intraorbital contents, and paranasal sinuses are unremarkable. Impression: 1. Negative for acute intracranial abnormalities. 2. Mild cerebral atrophy.
--- NOTE | 2023-02-11 15:43 | ED_ITS ---
HPI - Fall General: Chief Complaint: Fall Stated Complaint: Fall Time Seen by Provider: 02/11/23 15:25 History of Present Illness: Patient presents to the ER after falling while tripping on her feet and hitting her head. Patient is not on any blood thinners and denies any loss of co nsciousness. Patient denies any vision changes hearing changes etc. Patient's left knee also hurts a little bit but she is able to walk on it. Bleeding is controlled at this time. Patient rates her pain a 2 out of 10. Review of Systems General: Reports: 10 or more systems reviewed and unremarkable except in HPI and below PFSH ED PFSH: Medical History (Updated 02/11/23 @ 16:39 by Shar Adhikari DO) Chronic constipation Essential (primary) hypertension Hyperlipidemia, unspecified Vitamin D deficiency Acquired hypothyroidism Surgical History Hx of cholecystectomy Hx of colonoscopy (~2010) Family History Father Stroke Mother Stroke Denies family history of Diabetes Social History Smoking and tobacco/nicotine status: never used tobacco/nicotine Second hand smoke exposure: No Alcohol intake: never Substance/Drug Use: never Caregiver/support person: Yes Lives independently: No (daughter) Household members: children Marital status: / Current occupational status: retired Current gender identity: Female Physical Exam Const: COMMON NORMALS: no acute distress, average body habitus, patient oriented x3, no limitations, healthy appearing, alert and well nourished HENMT: COMMON NORMALS: normocephalic, hearing grossly normal bilaterally, external ears normal, Normal external nose present, moist oral mucous membranes and oropharynx normal; head/scalp not atraumatic (Abrasion laceration noted to the left facial region) HEAD & SCALP: normocephalic; not atraumatic (Abrasion laceration noted to the left facial region) NOSE: Normal external nose present EXTERNAL EAR: Yes external ears normal Neck/C-Spine: COMMON NORMALS: full ROM, no lymphadenopathy, supple, no meningeal signs, no JVD and Thyroid normal THYROID: Thyroid normal Chest: COMMONS NORMALS: normal inspection of the chest and normal palpation of entire chest wall Resp: COMMON NORMALS: normal respiratory effort, No retractions, No use of accessory muscles and clear to auscultation bilaterally AUSCULTATION: clear to auscultation bilaterally Cardio: COMMON NORMALS: no JVD, regular rate, regular rhythm, S1 normal heart sound present, S2 normal heart sound present, No gallops present (Cardio), No clicks present (Cardio), No murmurs present (Cardio) and No rub (Cardio) RATE: regular rate RHYTHM: regular rhythm HEART SOUNDS: S1 normal heart sound present and S2 normal heart sound present GI: COMMON NORMALS: Normal to inspection, nondistended, normoactive bowel sounds present, Soft to palpation, non-tender, No hepatosplenomegaly present and no masses PALPATION: Yes Soft to palpation and Yes No hepatosplenomegaly present Neuro: COMMON NORMALS: patient oriented x3 SENSORIUM/ORIENTATION: Yes alert MENINGEAL SIGNS: Yes no meningeal signs Procedures Laceration Laceration 1: Site: face Side (If applicable): left Size (cm): 2.5 Description: linear Depth: simple, single layer Local Anesthetic: lidocaine 1% Amount of anesthesia used (mL): 2 Pre-repair: wound explored and deep structures intact Skin layer closed with: nylon Size (cm): 4-0 Number of sutures: 3 Technique: simple, interrupted Course Vital Signs: Vital signs: Vital Signs Temperature 98.5 F 02/11/23 15:25 Pulse Rate 72 02/11/23 16:05 Respiratory Rate 18 02/11/23 16:05 Blood Pressure 150/90 02/11/23 16:05 Pulse Oximetry 100 02/11/23 16:05 Oxygen Delivery Me thod Room Air 02/11/23 16:05 MDM - Fall Medical Decision Making Patient presents to the ER after tripping on a rug falling and hitting the left side of her face. Patient had his head CT that was ruled as benign, laceration was closed up with 3 sutures with no complications. Patient be discharged to follow-up in approximately 5 to 7 days for suture removal. Differential Diagnosis Likely fracture of wrist; Unlikely syncope, dislocation of shoulder region, compression fracture, concussion with loss of consciousness or concussion without loss of consciousness Medical Records I reviewed the patient's medical records. Lab Data I reviewed the patient's lab results. All radiology interpretation(s) finalized by discharge Discharge Plan Discharge Patient Disposition: Home Clinical Impression: Facial laceration, Fall Condition: Stable Prescriptions: No Action cholecalciferol (vitamin D3) 25 mcg (1,000 unit) capsule 1,000 unit PO QDAY 90 Days Qty: 90 1RF diclofenac sodium 75 mg tablet,delayed release (DR/EC) 75 mg PO Q12H 90 Days Qty: 180 1RF fluticasone propionate [Flonase Allergy Relief] 50 mcg/actuation spray,suspension 2 spray intranasal DAILY Qty: 16 6RF Rx Instructions: administer into each nostril levocetirizine [Xyzal] 5 mg tablet 5 mg PO DAILY 90 Days Qty: 90 1RF levothyroxine 88 mcg tablet 88 mcg PO DAILY 90 Days Qty: 90 1RF lisinopril-hydrochlorothiazide 10-12.5 mg tablet 1 tab PO DAILY 90 Days Qty: 90 1RF meclizine 25 mg tablet 25 mg PO TID Qty: 30 0RF rosuvastatin 20 mg tablet See Rx Instructions .ROUTE .COMPLEX Qty: 45 3RF Dose Instruction: Take 1/2 (one-half) tablet by mouth once daily Rx Instructions: Take 1/2 (one-half) tablet by mouth once daily sertraline [Zoloft] 25 mg tablet 25 mg PO DAILY 90 Days Qty: 90 1RF tizanidine 2 mg tablet 2 mg PO TID PRN (Reason: muscle spasticity) Qty: 90 3RF oxybutynin chloride 5 mg tablet extended release 24hr 5 mg PO DAILY 90 Days Qty: 90 1RF Discharge Orders: Discharge ED (Routine); Ordered 02/11/23 Ordered By: Shar Adhikari Referrals: Karon Daniels NP [Primary Care Provider] - Patient Instructions: Facial Laceration (ED) Activity Restrictions/Additional Instructions: Please follow-up with your family practice physician approximately 5 to 7 days for reevaluation and possible suture removal. 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
[2023-02-11 16:05] VITALS: BP 150/90; PULSE 72; RESP 18; O2SAT 100
[2023-02-11 17:05] VITALS: BP 153/72; PULSE 68; RESP 16; O2SAT 99
[2023-02-11 17:10] VITALS: BP 153/72
== END 2023-02-11 17:14 | disposition home or self-care (01) ==
PROVIDERS: Emergency Provider Emergency Medicine; PCP Nurse Practitioner Family
DX: S01.81XA Laceration without foreign body of other part of head, initial encounter (principal); W01.0XXA Fall on same level from slipping, tripping and stumbling without subsequent striking against object, initial encounter; I10 Essential (primary) hypertension; E78.5 Hyperlipidemia, unspecified
CPT/HCPCS: 12011; 70450; 99284

== ENCOUNTER → 2023-05-26 10:26 | Outpatient (BNVA) | payer MEDICARE, SELFPAY | PROVIDERS: PCP Nurse Practitioner Family; Visit Provider Nurse Practitioner Family | DX: I10 Essential (primary) hypertension (principal); E78.5 Hyperlipidemia, unspecified; F32.9 Major depressive disorder, single episode, unspecified; E03.9 Hypothyroidism, unspecified; E55.9 Vitamin D deficiency, unspecified; M19.90 Unspecified osteoarthritis, unspecified site; J30.2 Other seasonal allergic rhinitis; N32.81 Overactive bladder; R32 Unspecified urinary incontinence; M54.50 Low back pain, unspecified; R42 Dizziness and giddiness; F33.41 Major depressive disorder, recurrent, in partial remission; E78.2 Mixed hyperlipidemia | CPT/HCPCS: 80053; 80061; 82306; 84443; 85025 ==

== ENCOUNTER → 2023-11-18 13:48 | Outpatient (BNVA) | payer MEDICARE, SELFPAY | PROVIDERS: PCP Nurse Practitioner Family; Visit Provider Family Medicine | DX: R30.0 Dysuria (principal) | CPT/HCPCS: 81000 ==

== ENCOUNTER → 2023-12-02 11:48 | Outpatient (BNVA) | payer MEDICARE, SELFPAY | PROVIDERS: PCP Nurse Practitioner Family; Visit Provider Nurse Practitioner Family | DX: I10 Essential (primary) hypertension (principal); E55.9 Vitamin D deficiency, unspecified; E03.9 Hypothyroidism, unspecified | CPT/HCPCS: 80053; 80061; 82306; 84443; 85025 ==

== ENCOUNTER → 2023-12-10 16:13 | Outpatient (BNVA) | payer MEDICARE, SELFPAY | PROVIDERS: PCP Nurse Practitioner Family; Visit Provider Nurse Practitioner Family | DX: R30.0 Dysuria (principal) | CPT/HCPCS: 81000 ==

== ENCOUNTER → 2024-03-29 12:29 | Outpatient (BNVA) | payer MEDICARE, SELFPAY | PROVIDERS: PCP Nurse Practitioner Family; Visit Provider Nurse Practitioner Family | DX: R41.3 Other amnesia (principal); E55.9 Vitamin D deficiency, unspecified; E03.9 Hypothyroidism, unspecified | CPT/HCPCS: 80053; 80061; 81000; 82306; 82607; 82746; 83735; 84443; 85025; 86592; 87086 ==

== ENCOUNTER → 2024-10-02 16:03 | Outpatient (BNVA) | payer MEDICARE, SELFPAY | PROVIDERS: PCP Nurse Practitioner Family; Visit Provider Registered Nurse Neonatal Intensive Care | DX: R10.2 Pelvic and perineal pain (principal) | CPT/HCPCS: 81000; 87077; 87086; 87184 ==

== ENCOUNTER 2024-11-26 18:33 | Emergency (ER) | payer MEDICARE, SELFPAY ==
[2024-11-26 18:37] VITALS: BP 175/78; PULSE 75; TEMP 36.4; O2SAT 98
--- NOTE | 2024-11-26 19:09 | XRR_ITS ---
PROCEDURE INFORMATION: Exam: XR Chest Exam date and time: 11/26/2024 7:18 PM Age: 83 years old Clinical indication: Cough; Additional info: Chest congestion/cough x 1 week TECHNIQUE: Imaging protocol: Radiologic exam of the chest. Views: 1 view. COMPARISON: CT chest abdpel w/*[id number] 08/06/2020 7:05 AM FINDINGS: Lungs: No focal consolidation. Pleural spaces: Unremarkable. No pleural effusion. No pneumothorax. Heart/Mediastinum: Unremarkable. No cardiomegaly. Bones/joints: Severe degenerative changes in the bilateral acromioclavicular joints. XR/XR chest 1V portable [id number] IMPRESSION: No focal consolidation.
[2024-11-26 19:29] VITALS: BP 186/123; O2SAT 100
--- NOTE | 2024-11-26 19:48 | ED_ITS ---
Documented by User: JAIR Stokes 11/26/24 23:25 HPI - URI/Sore Throat General: Chief Complaint: Upper Respiratory Infection Stated Complaint: Coughing, Yellow mucus, Phlegm Time Seen by Provider: 11/26/24 19:02 Source: patient Mode of arrival: ambulatory Limitations: no limitations History of Present Illness: Patient is an 83-year-old female with past medical history of hypertension who presents the emergency department complaining of productive cough for 1 week. States that she has been coughing up yellow phlegm and has been congested, denies history of allergies but states that she thinks this is what this is or possibly exposure to dust in her house. She also notes being around other people that have had similar symptoms. She is not reporting any shortness of breath, chest pain, peripheral edema, palpitations, abdominal pain, nausea/vomiting/diarrhea, or any other concerning symptoms at this time. She is hypertensive with triage, however oxygenating well on room air. MD elicited complaint: cough and nasal congestion Onset (ago): week(s) (1) Consistency: constant Severity: mild Description of mucous: yellow Able to tolerate fluids by mouth: Yes Context: sick contacts Associated symptoms: Reports nasal congestion; Deny abdominal pain, chills, chest pain, diarrhea, ear or mastoid pain, fever(s), headache(s), nausea or vomiting Related Data Previous Rx's ?Medication ?Instructions ?Recorded fluticasone propionate 50 2 spray intranasal DAILY #16 grams 12/18/22 mcg/actuation nasal spray,suspension (Flonase Allergy Relief) diclofenac sodium 75 mg 75 mg PO Q12H pain 90 days # 180 05/26/23 tablet,delayed release tabs levocetirizine 5 mg tablet (Xyzal) 5 mg PO DAILY 90 da ys #90 tabs 05/26/23 lisinopril 10 1 tab PO DAILY 90 days #90 t abs 05/26/23 mg-hydrochlorothiazide 12.5 mg tablet rosuvastatin 20 mg tablet See Rx Instructions .Route 0 05/26/23 .COMPLEX #45 tabs tizanidine 2 mg tablet 2 mg PO TID PRN muscle spast icity 05/26/23 #90 tabs furosemide 20 mg tablet (Lasix) 20 mg PO DAILY 30 days #30 tabs 12/02/23 potassium chloride 10 mEq 10 meq PO DAILY #30 caps 10/ 03/24 capsule,extended release erythromycin 5 mg/gram (0.5 %) eye 1 applic ophthalmic (eye) Q6H 7 02/04/24 ointment (3.5 gram tube) days #3.5 grams cholecalciferol (vitamin D3) 50 2,000 unit PO QDAY 90 days #90 caps 03/30/24 mcg (2,000 unit) capsule levothyroxine 100 mcg tablet 100 mcg PO DAILY 90 days #90 tabs 03/30/24 sertraline 25 mg tablet (Zoloft) 25 mg PO DAILY 90 day s #90 tabs 07/17/24 nitrofurantoin 100 mg PO BID 7 days #14 cap s 10/02/24 monohydrate/macrocrystals 100 mg capsule (Macrobid) oxybutynin chloride 5 mg 5 mg PO DAILY 90 days #90 ta bs 10/02/24 tablet,extended release 24 hr azithromycin 500 mg tablet 500 mg PO DAILY 5 days #5 t abs 11/26/24 Allergies Allergy/AdvReac Type Severity Reaction Status Date / Time amoxicillin Allergy Unknown Unknown Verified 11/26/24 18:45 atorvastatin (From Lipitor) Allergy Unknown Unknown Verified 11/26/24 18:45 Penicillins Allergy unknown Verified 11/26/24 18:45 Review of Systems General: Reports: 10 or more systems reviewed and unremarkable except in HPI and below Const: Denies: fever(s), chills or fatigue Eyes: Denies: change in vision ENMT: Reports: nasal congestion; Denies: throat pain, ear or mastoid pain or nasal discharge Card: Denies: chest pain, palpitations, swelling of feet/ankles or lightheadedness Resp: Reports: productive cough and chest congestion; Denies: dyspnea or wheezing GI: Denies: abdominal pain, nausea, vomiting, diarrhea or constipation : Denies: flank pain, difficulty voiding, dysuria or urinary frequency Musc: Denies: neck pain, back pain or joint pain Skin/Breast: Denies: rash Neuro: Denies: headache(s), numbness in extremities or weakness in extremities PFSH ED PFSH: Medical History Chronic constipation Essential (primary) hypertension Hyperlipidemia, unspecified Vitamin D deficiency Acquired hypothyroidism Surgical History Hx of cholecystectomy Hx of colonoscopy (~2010) Family History Father Stroke Mother Stroke Denies family history of Diabetes Social History Smoking and tobacco/nicotine status: never used tobacco/nicotine Second hand smoke exposure: No Alcohol intake: never Substance/Drug Use: never Caregiver/support person: Yes Lives independently: No (daughter) Household members: children Marital status: / Current occupational status: retired Current gender identity: Female Physical Exam Const: COMMON NORMALS: no acute distress and no limitations GENERAL APPEARANCE: cooperative, comfortable and well developed ORIENTATION/CONSCIOUSNESS: Yes awake OTHER: nontoxic HENMT: COMMON NORMALS: normocephalic, atraumatic and hearing grossly normal bilaterally HEAD & SCALP: normocephalic and atraumatic Eye: COMMON NORMALS: Equal, round and reactive pupils present, EOMs intact bilaterally and conjunctivae normal CONJUNCTIVA: Yes conjunctivae normal PUPIL: Yes Equal, round and reactive pupils present Neck/C-Spine: COMMON NORMALS: full ROM, supple and no JVD Resp: COMMON NORMALS: normal respiratory effort, No retractions, No use of accessory muscles and clear to auscultation bilaterally AUSCULTATION: clear to auscultation bilaterally Cardio: COMMON NORMALS: no JVD, regular rate, regular rhythm, No clicks present (Cardio), No murmurs present (Cardio) and No rub (Cardio) RATE: regular rate RHYTHM: regular rhythm GI: COMMON NORMALS: Normal to inspection, nondistended, normoactive bowel sounds present, Soft to palpation and non-tender AUSCULTATION: Yes normoactive bowel sounds PALPATION: Yes Soft to palpation RECTAL EXAM: deferred Extremity: COMMON NORMALS: normal to inspection, full ROM and capillary refill normal Skin: COMMON NORMALS: no rashes or lesions noted GENERAL SKIN EXAM: no rashes or lesions noted Course Vital Signs: Vital signs: Vital Signs Temperature 97.5 F L 11/26/24 18:37 Pulse Rate 80 11/26/24 21:54 Respiratory Rate 17 11/26/24 21:54 Blood Pressure 183/84 11/26/24 21:54 Pulse Oximetry 97 09/28/25 21:54 Oxygen Delivery Me thod Room Air 11/26/24 21:05 MDM - URI/Sore Throat Medical Decision Making Patient presenting with cough for a week, that is productive of yellow sputum. No shortness of breath or chest pain however, however she did note sick contact exposure. Her COVID flu RSV swab was negative. Chest x-ray does not show any focal consolidation. Suspect acute bronchitis will treat with Z-Margraito as she is stable for discharge home and not requiring supplemental oxygen. Gave her general return precautions and told to follow-up with primary care. Lab Data Radiology Impressions Chest X-Ray 11/26/24 19:09 IMPRESSION: No focal consolidation. Laboratory Results Influenza A (PCR) Negative (Negative) 11/26/24 19:15 Influenza Type B (PCR) Negative (Negative) 11/26/24 19:15 RSV (PCR) Negative (Negative) 11/26/24 19:15 SARS-CoV-2 (PCR) Negative (Negative) 11/26/24 19:15 All radiology interpretation(s) finalized by discharge Discharge Plan Discharge Patient Disposition: Home Clinical Impression: Acute bronchitis Qualifiers: Bronchitis organism: unspecified organism Qualified Code(s): J20.9 - Acute bronchitis, unspecified Condition: Stable Prescriptions: New azithromycin 500 mg tablet 500 mg PO DAILY 5 Days Qty: 5 0RF No Action diclofenac sodium 75 mg tablet,delayed release (DR/EC) 75 mg PO Q12H 90 Days Qty: 180 1RF levocetirizine [Xyzal] 5 mg tablet 5 mg PO DAILY 90 Days Qty: 90 1RF lisinopril-hydrochlorothiazide 10-12.5 mg tablet 1 tab PO DAILY 90 Days Qty: 90 1RF rosuvastatin 20 mg tablet See Rx Instructions .ROUTE .COMPLEX Qty: 45 3RF Dose Instruction: Take 1/2 (one-half) tablet by mouth once daily Rx Instructions: Take 1/2 (one-half) tablet by mouth once daily tizanidine 2 mg tablet 2 mg PO TID PRN (Reason: muscle spasticity) Qty: 90 3RF nitrofurantoin monohyd/m-cryst [Macrobid] 100 mg capsule 100 mg PO BID 7 Days Qty: 14 0RF Rx Instructions: must administer with a meal/food fluticasone propionate [Flonase Allergy Relief] 50 mcg/actuation spray,suspension 2 spray intranasal DAILY Qty: 16 6RF Rx Instructions: administer into each nostril furosemide [Lasix] 20 mg tablet 20 mg PO DAILY 30 Days Qty: 30 2RF potassium chloride 10 mEq capsule, extended release 10 meq PO DAILY Qty: 30 2RF erythromycin 5 mg/gram (0.5 %) ointment 1 applic ophthalmic (eye) Q6H 7 Days Qty: 3.5 0RF cholecalciferol (vitamin D3) 50 mcg (2,000 unit) capsule 2,000 unit PO QDAY 90 Days Qty: 90 1RF levothyroxine 100 mcg tablet 100 mcg PO DAILY 90 Days Qty: 90 1RF sertraline [Zoloft] 25 mg tablet 25 mg PO DAILY 90 Days Qty: 90 1RF oxybutynin chloride 5 mg tablet extended release 24hr 5 mg PO DAILY 90 Days Qty: 90 1RF Discharge Orders: Discharge ED (Routine); Ordered 11/26/24 Ordered By: Etienne Abbott Referrals: Priscila Scott FNP [Primary Care Provider, Family Practice] Patient Instructions: Patient Portal & Jin Instructions Activity Restrictions/Additional Instructions: Acute Bronchitis Discharge Diagnosis: Acute bronchitis Medication: Azithromycin 500 mg orally once daily for 5 days --- Instructions: - Medication Adherence: Take azithromycin exactly as prescribed. Complete the full 5-day course, even if symptoms improve before finishing the medication. - Common Side Effects: Azithromycin may cause gastrointestinal symptoms (nausea, diarrhea, abdominal pain), headache, or rash. If severe or persistent, contact your provider. - Serious Adverse Effects: Seek immediate medical attention for signs of allergic reaction (rash, swelling, difficulty breathing), severe diarrhea, jaundice, or dark urine (possible liver injury), or palpitations/lightheadedness (possible arrhythmia). - Cardiac Risk: Elderly patients are at increased risk for QT prolongation and torsades de pointes. Report any new palpitations, fainting, or chest pain. Azithromycin should be used with caution in those with a history of arrhythmia, heart failure, or those taking other QT-prolonging medications. - Clostridioides difficile Risk: Antibiotic use may increase the risk of C. difficile-associated diarrhea. Report persistent or severe diarrhea. - Symptom Management: Acute bronchitis is typically self-limited. Cough may persist for 2?3 weeks. Supportive care (hydration, rest) is recommended. [id number] cough suppressants or expectorants may provide symptomatic relief, but evidence for benefit is limited. - Follow-Up: Return for evaluation if symptoms worsen, new fever develops, shortness of breath increases, or if you have underlying lung disease (COPD, asthma) and symptoms do not improve. - Antibiotic Stewardship: Antibiotics are not routinely indicated for acute bronchitis unless there is suspicion for bacterial infection or complicating factors. The decision to prescribe azithromycin should be based on clinical judgment and patient-specific risk factors. - Drug Interactions: Inform your provider of all medications, especially those that may prolong the QT interval (e.g., certain antiarrhythmics, antipsychotics). - Geriatric Considerations: No significant differences in safety or efficacy have been observed in older adults, but increased sensitivity to adverse effects is possible. --- When to Seek Immediate Care: - Difficulty breathing, chest pain, or severe shortness of breath - Severe allergic reaction (swelling, rash, difficulty swallowing/breathing) - Persistent vomiting or inability to keep fluids down - Severe or bloody diarrhea - Jaundice (yellowing of skin/eyes), dark urine --- Expected Course: - Cough may last up to 2?3 weeks, even after starting antibiotics. - Most patients recover without complications. Print Language: Cambodian Coding Level of Care Code ED Practical Nurse for Dayanna Michaud Documented by User: Tobi Sweet DO 11/26/24 23:59 HPI - URI/Sore Throat General: Chief Complaint: Upper Respiratory Infection Stated Complaint: Coughing, Yellow mucus, Phlegm Time Seen by Provider: 11/26/24 19:02 Related Data Previous Rx's ?Medication ?Instructions ?Recorded fluticasone propionate 50 2 spray intranasal DAILY #16 grams 12/18/22 mcg/actuation nasal spray,suspension (Flonase Allergy Relief) diclofenac sodium 75 mg 75 mg PO Q12H pain 90 days # 180 05/26/23 tablet,delayed release tabs levocetirizine 5 mg tablet (Xyzal) 5 mg PO DAILY 90 da ys #90 tabs 05/26/23 lisinopril 10 1 tab PO DAILY 90 days #90 t abs 05/26/23 mg-hydrochlorothiazide 12.5 mg tablet rosuvastatin 20 mg tablet See Rx Instructions .Route 0 05/26/23 .COMPLEX #45 tabs tizanidine 2 mg tablet 2 mg PO TID PRN muscle spast icity 05/26/23 #90 tabs furosemide 20 mg tablet (Lasix) 20 mg PO DAILY 30 days #30 tabs 12/02/23 potassium chloride 10 mEq 10 meq PO DAILY #30 caps 05/22 capsule,extended release erythromycin 5 mg/gram (0.5 %) eye 1 applic ophthalmic (eye) Q6H 7 02/04/24 ointment (3.5 gram tube) days #3.5 grams cholecalciferol (vitamin D3) 50 2,000 unit PO QDAY 90 days #90 caps 03/30/24 mcg (2,000 unit) capsule levothyroxine 100 mcg tablet 100 mcg PO DAILY 90 days #90 tabs 03/30/24 sertraline 25 mg tablet (Zoloft) 25 mg PO DAILY 90 day s #90 tabs 07/17/24 nitrofurantoin 100 mg PO BID 7 days #14 cap s 10/02/24 monohydrate/macrocrystals 100 mg capsule (Macrobid) oxybutynin chloride 5 mg 5 mg PO DAILY 90 days #90 ta bs 10/02/24 tablet,extended release 24 hr azithromycin 500 mg tablet 500 mg PO DAILY 5 days #5 t abs 11/26/24 Allergies Allergy/AdvReac Type Severity Reaction Status Date / Time amoxicillin Allergy Unknown Unknown Verified 11/26/24 18:45 atorvastatin (From Lipitor) Allergy Unknown Unknown Verified 11/26/24 18:45 Penicillins Allergy unknown Verified 11/26/24 18:45 PFSH ED PFSH: Medical History Chronic constipation Essential (primary) hypertension Hyperlipidemia, unspecified Vitamin D deficiency Acquired hypothyroidism Surgical History Hx of cholecystectomy Hx of colonoscopy (~2010) Family History Father Stroke Mother Stroke Denies family history of Diabetes Social History Smoking and tobacco/nicotine status: never used tobacco/nicotine Second hand smoke exposure: No Alcohol intake: never Substance/Drug Use: never Caregiver/support person: Yes Lives independently: No (daughter) Household members: children Marital status: / Current occupational status: retired Current gender identity: Female Course Vital Signs: Vital signs: Vital Signs Temperature 97.5 F L 11/26/24 18:37 Pulse Rate 80 11/26/24 21:54 Respiratory Rate 17 11/26/24 21:54 Blood Pressure 183/84 11/26/24 21:54 Pulse Oximetry 97 11/26/24 21:54 Oxygen Delivery Me thod Room Air 11/26/24 21:05 MDM - URI/Sore Throat Medical Decision Making Patient presenting with cough for a week, that is productive of yellow sputum. No shortness of breath or chest pain however, however she did note sick contact exposure. Her COVID flu RSV swab was negative. Chest x-ray does not show any focal consolidation. Suspect acute bronchitis will treat with Z-Margarito as she is stable for discharge home and not requiring supplemental oxygen. Gave her general return precautions and told to follow-up with primary care. Patient was originally seen by Mr. Scar PA-C. I agree with his history, evaluation, and treatment. Lab Data Radiology Impressions Chest X-Ray 11/26/24 19:09 IMPRESSION: No focal consolidation. Laboratory Results Influenza A (PCR) Negative (Negative) 11/26/24 19:15 Influenza Type B (PCR) Negative (Negative) 11/26/24 19:15 RSV (PCR) Negative (Negative) 11/26/24 19:15 SARS-CoV-2 (PCR) Negative (Negative) 11/26/24 19:15 Discharge Plan Discharge Patient Disposition: Home Clinical Impression: Acute bronchitis Qualifiers: Bronchitis organism: unspecified organism Qualified Code(s): J20.9 - Acute bronchitis, unspecified Condition: Stable Prescriptions: New azithromycin 500 mg tablet 500 mg PO DAILY 5 Days Qty: 5 0RF No Action diclofenac sodium 75 mg tablet,delayed release (DR/EC) 75 mg PO Q12H 90 Days Qty: 180 1RF levocetirizine [Xyzal] 5 mg tablet 5 mg PO DAILY 90 Days Qty: 90 1RF lisinopril-hydrochlorothiazide 10-12.5 mg tablet 1 tab PO DAILY 90 Days Qty: 90 1RF rosuvastatin 20 mg tablet See Rx Instructions .ROUTE .COMPLEX Qty: 45 3RF Dose Instruction: Take 1/2 (one-half) tablet by mouth once daily Rx Instructions: Take 1/2 (one-half) tablet by mouth once daily tizanidine 2 mg tablet 2 mg PO TID PRN (Reason: muscle spasticity) Qty: 90 3RF nitrofurantoin monohyd/m-cryst [Macrobid] 100 mg capsule 100 mg PO BID 7 Days Qty: 14 0RF Rx Instructions: must administer with a meal/food fluticasone propionate [Flonase Allergy Relief] 50 mcg/actuation spray,suspension 2 spray intranasal DAILY Qty: 16 6RF Rx Instructions: administer into each nostril furosemide [Lasix] 20 mg tablet 20 mg PO DAILY 30 Days Qty: 30 2RF potassium chloride 10 mEq capsule, extended release 10 meq PO DAILY Qty: 30 2RF erythromycin 5 mg/gram (0.5 %) ointment 1 applic ophthalmic (eye) Q6H 7 Days Qty: 3.5 0RF cholecalciferol (vitamin D3) 50 mcg (2,000 unit) capsule 2,000 unit PO QDAY 90 Days Qty: 90 1RF levothyroxine 100 mcg tablet 100 mcg PO DAILY 90 Days Qty: 90 1RF sertraline [Zoloft] 25 mg tablet 25 mg PO DAILY 90 Days Qty: 90 1RF oxybutynin chloride 5 mg tablet extended release 24hr 5 mg PO DAILY 90 Days Qty: 90 1RF Discharge Orders: Discharge ED (Routine); Ordered 11/26/24 Ordered By: Etienne Abbott Referrals: Priscila Scott FNP [Primary Care Provider, Family Practice] Patient Instructions: Patient Portal & Jin Instructions Activity Restrictions/Additional Instructions: Acute Bronchitis Discharge Diagnosis: Acute bronchitis Medication: Azithromycin 500 mg orally once daily for 5 days --- Instructions: - Medication Adherence: Take azithromycin exactly as prescribed. Complete the fu ll 5-day course, even if symptoms improve before finishing the medication. - Common Side Effects: Azithromycin may cause gastrointestinal symptoms (nausea, diarrhea, abdominal pain), headache, or rash. If severe or persistent, contact your provider. - Serious Adverse Effects: Seek immediate medical attention for signs of allergic reaction (rash, swelling, difficulty breathing), severe diarrhea, jaundice, or dark urine (possible liver injury), or palpitations/lightheadedness (possible arrhythmia). - Cardiac Risk: Elderly patients are at increased risk for QT prolongation and torsades de pointes. Report any new palpitations, fainting, or chest pain. Azithromycin should be used with caution in those with a history of arrhythmia, heart failure, or those taking other QT-prolonging medications. - Clostridioides difficile Risk: Antibiotic use may increase the risk of C. difficile-associated diarrhea. Report persistent or severe diarrhea. - Symptom Management: Acute bronchitis is typically self-limited. Cough may persist for 2?3 weeks. Supportive care (hydration, rest) is recommended. [id number] cough suppressants or expectorants may provide symptomatic relief, but evidence for benefit is limited. - Follow-Up: Return for evaluation if symptoms worsen, new fever develops, shortness of breath increases, or if you have underlying lung disease (COPD, asthma) and symptoms do not improve. - Antibiotic Stewardship: Antibiotics are not routinely indicated for acute bronchitis unless there is suspicion for bacterial infection or complicating factors. The decision to prescribe azithromycin should be based on clinical judgment and patient-specific risk factors. - Drug Interactions: Inform your provider of all medications, especially those that may prolong the QT interval (e.g., certain antiarrhythmics, ant ipsychotics). - Geriatric Considerations: No significant differences in safety or efficacy have been observed in older adults, but increased sensitivity to adverse effects is possible. --- When to Seek Immediate Care: - Difficulty breathing, chest pain, or severe shortness of breath - Severe allergic reaction (swelling, rash, difficulty swallowing/breathing) - Persistent vomiting or inability to keep fluids down - Severe or bloody diarrhea - Jaundice (yellowing of skin/eyes), dark urine --- Expected Course: - Cough may last up to 2?3 weeks, even after starting antibiotics. - Most patients recover without complications. Print Language: Cambodian Coding Level of Care Code ED Practical Nurse for Dayanna Michaud
[2024-11-26 20:21] LABS: Respiratory Syncytial Virus Ce NEGATIVE (Negative); SARS-CoV-2 PCR NEGATIVE (Negative)
[2024-11-26 21:05] VITALS: BP 152/81; O2SAT 100
[2024-11-26 21:54] VITALS: BP 183/84; PULSE 80; RESP 17; O2SAT 97
== END 2024-11-26 21:55 | disposition home or self-care (01) ==
PROVIDERS: Emergency Provider Physician Assistant; PCP Nurse Practitioner Family
DX: J20.9 Acute bronchitis, unspecified (principal); Z11.52 Encounter for screening for COVID-19; E78.5 Hyperlipidemia, unspecified; I10 Essential (primary) hypertension
CPT/HCPCS: 71045; 87637; 99284

== ENCOUNTER 2024-12-03 22:00 | Emergency (ER) | payer MEDICARE, SELFPAY ==
[2024-12-03 22:05] VITALS: BP 137/67; PULSE 82; RESP 18; TEMP 36.8; O2SAT 96; BMI 20.7
--- NOTE | 2024-12-04 00:33 | XRR_ITS ---
PROCEDURE INFORMATION: Exam: XR Chest Exam date and time: 12/04/2024 12:35 AM Age: 83 years old Clinical indication: Cough and shortness of breath; Cough with SOB; Additional info: Cough SOB TECHNIQUE: Imaging protocol: Radiologic exam of the chest. Views: 1 view. COMPARISON: CR (CHEST, ) 11/26/2024 7:18 PM FINDINGS: Lungs: Emphysematous changes. Pleural spaces: Unremarkable. No pleural effusion. No pneumothorax. Heart/Mediastinum: Unremarkable. No cardiomegaly. Bones/joints: Unremarkable. XR/XR chest 1V portable [id number] IMPRESSION: 1. Negative for infiltrate. 2. Emphysematous changes.
--- NOTE | 2024-12-04 00:33 | XRR_ITS ---
PROCEDURE INFORMATION: Exam: XR Right Hand Exam date and time: 12/04/2024 12:35 AM Age: 83 years old Clinical indication: Right; C/O RT hand pain with swelling. No injury. ; Additional info: R hand pain and swelling TECHNIQUE: Imaging protocol: Radiologic exam of the right hand. Views: 3 or more views. COMPARISON: No relevant prior studies available. 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 Possible chronic unfused ulnar styloid process. Soft tissues: Normal. XR/XR hand RT min 3V* [id number] IMPRESSION: 1. Negative for acute appearing bony abnormality. 2. 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 3. Possible chronic unfused ulnar styloid process.
--- NOTE | 2024-12-04 01:11 | ED_ITS ---
HPI - URI/Sore Throat General: Chief Complaint: Upper Respiratory Infection Stated Complaint: righ hand swollen. SOB cough Time Seen by Provider: 12/03/24 23:32 History of Present Illness: The patient is an 83-year-old female who presents today with two primary concerns. First, she reports a persistent cough that was previously diagnosed as bronchitis approximately one week ago. According to her daughter, the patient has been coughing throughout the night, sometimes to the point of crying due to discomfort. The patient states she is coughing up sputum that was yellow but is now becoming clearer. She denies fever. Her second complaint involves right hand pain. She describes injuring her right hand while attempting to open a soda can. She reports pain primarily in the palmar aspect of her right hand at the thumb.The area is described as warm and appears pink. She reports that the pain is severe enough to limit her ability to perform simple tasks such as wiping the inside of a coffee cup. The pain improves temporarily with ibuprofen but returns. She denies any animal bites or scrapes or skin lesions to the affected area. Related Data Previous Rx's ?Medication ?Instructions ?Recorded fluticasone propionate 50 2 spray intranasal DAILY #16 grams 12/18/22 mcg/actuation nasal spray,suspension (Flonase Allergy Relief) diclofenac sodium 75 mg 75 mg PO Q12H pain 90 days # 180 05/26/23 tablet,delayed release tabs levocetirizine 5 mg tablet (Xyzal) 5 mg PO DAILY 90 da ys #90 tabs 05/26/23 lisinopril 10 1 tab PO DAILY 90 days #90 t abs 05/26/23 mg-hydrochlorothiazide 12.5 mg tablet rosuvastatin 20 mg tablet See Rx Instructions .Route 0 05/26/23 .COMPLEX #45 tabs tizanidine 2 mg tablet 2 mg PO TID PRN muscle spast icity 05/26/23 #90 tabs furosemide 20 mg tablet (Lasix) 20 mg PO DAILY 30 days #30 tabs 12/02/23 potassium chloride 10 mEq 10 meq PO DAILY #30 caps 05/22 capsule,extended release erythromycin 5 mg/gram (0.5 %) eye 1 applic ophthalmic (eye) Q6H 7 02/04/24 ointment (3.5 gram tube) days #3.5 grams cholecalciferol (vitamin D3) 50 2,000 unit PO QDAY 90 days #90 caps 03/30/24 mcg (2,000 unit) capsule levothyroxine 100 mcg tablet 100 mcg PO DAILY 90 days #90 tabs 03/30/24 sertraline 25 mg tablet (Zoloft) 25 mg PO DAILY 90 day s #90 tabs 07/17/24 nitrofurantoin 100 mg PO BID 7 days #14 cap s 10/02/24 monohydrate/macrocrystals 100 mg capsule (Macrobid) oxybutynin chloride 5 mg 5 mg PO DAILY 90 days #90 ta bs 10/02/24 tablet,extended release 24 hr albuterol sulfate 90 mcg/actuation 2 inh inhalation Q4 H PRN shortness 12/04/24 aerosol inhaler of breath or wheezing #6.7 g torey doxycycline hyclate 100 mg tablet 100 mg PO BID 7 days #14 tabs 12/04/24 methylprednisolone 4 mg tablets in See Rx Instructions PO .COMPLEX 12/04/24 a dose pack (Medrol (Margarito)) #21 ea Allergies Allergy/AdvReac Type Severity Reaction Status Date / Time amoxicillin Allergy Unknown Unknown Verified 11/26/24 18:45 atorvastatin (From Lipitor) Allergy Unknown Unknown Verified 11/26/24 18:45 Penicillins Allergy unknown Verified 11/26/24 18:45 [facility] ED PFSH: Medical History (Updated 12/04/24 @ 01:13 by Tobi Sweet DO) Chronic constipation Essential (primary) hypertension Hyperlipidemia, unspecified Vitamin D deficiency Acquired hypothyroidism Surgical History Hx of cholecystectomy Hx of colonoscopy (~2010) Family History Father Stroke Mother Stroke Denies family history of Diabetes Social History Smoking and tobacco/nicotine status: never used tobacco/nicotine Second hand smoke exposure: No Alcohol intake: never Substance/Drug Use: never Caregiver/support person: Yes Lives independently: No (daughter) Household members: children Marital status: / Current occupational status: retired Current gender identity: Female Physical Exam Const: COMMON NORMALS: no acute distress GENERAL APPEARANCE: cooperative; not ill appearing HENMT: COMMON NORMALS: normocephalic and atraumatic HEAD & SCALP: normocephalic and atraumatic FACE & SINUS: normal facial exam and face symmetric Eye: COMMON NORMALS: Equal, round and reactive pupils present and EOMs intact bilaterally PUPIL: Yes Equal, round and reactive pupils present Chest: CHEST: Yes Symmetrical chest wall rise Resp: COMMON NORMALS: normal respiratory effort, No use of accessory muscles and clear to auscultation bilaterally AUSCULTATION: clear to auscultation bilaterally Cardio: COMMON NORMALS: regular rate and regular rhythm RATE: regular rate RHYTHM: regular rhythm Extremity: OTHER: Right 1st CMC tenderness, redness, mild swelling. no skin lesion present. Neuro: JOSE COMA SCALE: document GCS findings [place] coma scale eye opening: Spontaneous [place] coma scale verbal response: Orientated [place] coma scale motor response: Obey commands [place] coma scale total score: 15 Course Vital Signs: Vital signs: Vital Signs Temperature 98.2 F 12/03/24 22:05 Pulse Rate 82 12/03/24 22:05 Respiratory Rate 18 12/03/24 22:05 Blood Pressure 137/67 12/03/24 22:05 Pulse Oximetry 96 12/03/24 22:05 Oxygen Delivery Me thod Room Air 12/03/24 22:05 MDM - URI/Sore Throat Medical Decision Making Xray chest negative Xray hand 1st cmc OA that is severe. mild inflammation presnt on exam with redness and swelling with tenderness. steroid for bronchitis as well as OA change with active inflammation. doxycycline for bronchitis and coverage of cellulitis. outpt follow up. stable for dc. Lab Data Radiology Impressions Chest X-Ray 12/04/24 00:33 IMPRESSION: 1. Negative for infiltrate. 2. Emphysematous changes. Hand X-Ray 12/04/24 00:33 IMPRESSION: 1. Negative for acute appearing bony abnormality. 2. 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 3. Possible chronic unfused ulnar styloid process. All radiology interpretation(s) finalized by discharge Discharge Plan Discharge Patient Disposition: Home Clinical Impression: Cellulitis of hand, right, Arthritis of carpometacarpal (CMC) joint of right thumb, Bronchitis Condition: Stable Prescriptions: New methylprednisolone [Medrol (Margarito)] 4 mg tablets,dose pack See Rx Instructions .ROUTE .COMPLEX Qty: 21 0RF Rx Instructions: orally per package directions albuterol sulfate 90 mcg/actuation HFA aerosol inhaler 2 inh INHALATION Q4H PRN (Reason: shortness of breath or wheezing) Qty: 6.7 1RF doxycycline hyclate 100 mg tablet 100 mg PO BID 7 Days Qty: 14 0RF No Action diclofenac sodium 75 mg tablet,delayed release (DR/EC) 75 mg PO Q12H 90 Days Qty: 180 1RF levocetirizine [Xyzal] 5 mg tablet 5 mg PO DAILY 90 Days Qty: 90 1RF lisinopril-hydrochlorothiazide 10-12.5 mg tablet 1 tab PO DAILY 90 Days Qty: 90 1RF rosuvastatin 20 mg tablet See Rx Instructions .ROUTE .COMPLEX Qty: 45 3RF Dose Instruction: Take 1/2 (one-half) tablet by mouth once daily Rx Instructions: Take 1/2 (one-half) tablet by mouth once daily tizanidine 2 mg tablet 2 mg PO TID PRN (Reason: muscle spasticity) Qty: 90 3RF nitrofurantoin monohyd/m-cryst [Macrobid] 100 mg capsule 100 mg PO BID 7 Days Qty: 14 0RF Rx Instructions: must administer with a meal/food fluticasone propionate [Flonase Allergy Relief] 50 mcg/actuation spray,suspension 2 spray intranasal DAILY Qty: 16 6RF Rx Instructions: administer into each nostril furosemide [Lasix] 20 mg tablet 20 mg PO DAILY 30 Days Qty: 30 2RF potassium chloride 10 mEq capsule, extended release 10 meq PO DAILY Qty: 30 2RF erythromycin 5 mg/gram (0.5 %) ointment 1 applic ophthalmic (eye) Q6H 7 Days Qty: 3.5 0RF cholecalciferol (vitamin D3) 50 mcg (2,000 unit) capsule 2,000 unit PO QDAY 90 Days Qty: 90 1RF levothyroxine 100 mcg tablet 100 mcg PO DAILY 90 Days Qty: 90 1RF sertraline [Zoloft] 25 mg tablet 25 mg PO DAILY 90 Days Qty: 90 1RF oxybutynin chloride 5 mg tablet extended release 24hr 5 mg PO DAILY 90 Days Qty: 90 1RF Discharge Orders: Discharge ED (Routine); Ordered 12/04/24 Ordered By: Tobi Sweet Referrals: Priscila Scott FNP [Primary Care Provider, Family Practice] - 1-3 days Patient Instructions: Cellulitis (ED), Osteoarthritis (ED), Acute Bronchitis (ED), Opioid Safety, Pain Management, Patient Portal & Jin Instructions Activity Restrictions/Additional Instructions: Use the inhaler you were prescribed every 4 hours while awake for the first 48 hours for the feel you needed or not, then as needed following that. Other medications as directed. Antibiotic should help with the redness of the skin of your hand, as well as the bronchitis. This is true also for the steroid prescribed. Call your doctor in the morning for a follow-up appointment this week. Return for worsening symptoms despite treatment. Print Language: French Coding Level of Care Code ED Dive Master for Dayanna Michaud
== END 2024-12-04 01:37 | disposition home or self-care (01) ==
PROVIDERS: Emergency Provider Emergency Medicine; PCP Nurse Practitioner Family
DX: L03.113 Cellulitis of right upper limb (principal); M18.11 Unilateral primary osteoarthritis of first carpometacarpal joint, right hand; J40 Bronchitis, not specified as acute or chronic; E78.5 Hyperlipidemia, unspecified; I10 Essential (primary) hypertension
CPT/HCPCS: 71045; 73130; 99284; J7512; J9999

== ENCOUNTER → 2024-12-07 10:27 | Outpatient (BNVA) | payer MEDICARE, SELFPAY | PROVIDERS: PCP Nurse Practitioner Family; Visit Provider Nurse Practitioner Family | DX: I10 Essential (primary) hypertension (principal) | CPT/HCPCS: 80053; 80061; 82306; 82607; 84443; 85025 ==